=== PATIENT | female | born 1985 | race African-American/Black ===

== ENCOUNTER 2021-04-15 11:07 | Emergency (ER) | payer MEDICAID ==
[~2021-04-15] VITALS: Ht 165.1 cm; Wt 68.9 kg
--- NOTE | 2021-04-15 11:31 | NUR ---
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 THE PATIENT IS ALERT AND ORIENTED X3. DENIES PAIN. IN ROOM AIR AND DENIES SOB. RESPIRATION REGULAR AND UNLABORED. DENIES SI/HI. WILL CONTINUE TO MONITOR THE PATIENT.
--- NOTE | 2021-04-15 11:36 | NUR ---
DR PERSON AT THE BEDSIDE
--- NOTE | 2021-04-15 11:47 | NUR ---
PHLEBATOMIST AT THE BEDSIDE
[2021-04-15 11:52] LABS: BASOPHILS % (AUTO) 0.3 % (0.0-2.0); EOSINOPHILS % (AUTO) 0.5 % (0.0-6.0); HEMATOCRIT 32 % (33-45); HEMOGLOBIN 10.7 g/dL (11.5-14.8); LYMPHOCYTES # (AUTO) 1.6 K/uL (0.8-4.8); LYMPHOCYTES % (AUTO) 31.1 % (20.0-44.0); MEAN CORPUSCULAR HGB CONC 33 g/dl (31.0-36.0); MEAN CORPUSCULAR VOLUME 102 fL (82-100); MONOCYTES # (AUTO) 0.5 K/uL (0.1-1.30); MONOCYTES % (AUTO) 10.3 % (2.0-12.0); NEUTROPHILS % (AUTO) 57.8 % (43.0-81.0); PLATELET COUNT (AUTO) 332 K/uL (150-450); RED BLOOD CELL COUNT(AUTO) 3.16 MIL/uL (4.0-5.2); WHITE BLOOD COUNT (AUTO) 5.2 K/uL (4.3-11.0)
--- NOTE | 2021-04-15 11:52 | NUR ---
THE PATIENT DOES HAVE URGE TO URINATE AT THIS TIME. WILL ASK AGAIN LATER.
--- NOTE | 2021-04-15 12:06 | NUR ---
THE PATIENT IS SERVED WITH LUNCH. TOLERATES PROVIDED FOOD WELL.
[2021-04-15 12:13] LABS: ALANINE AMINOTRANSFERASE 13 U/L (12-78); ALBUMIN 2.9 g/dL (3.4-5.0); ALKALINE PHOSPHATASE 78 U/L (46-116); ASPARTATE AMINOTRANSFERASE 10 U/L (15-37); BILIRUBIN,DIRECT 0.1 mg/dL (0.0-0.2); BILIRUBIN,TOTAL 0.2 mg/dL (0.2-1.0); CALCIUM, SERUM 8.2 mg/dL (8.5-10.1); CARBON DIOXIDE 27 mmol/L (21-32); CHLORIDE 110 mmol/L (98-107); CREATININE 0.8 mg/dL (0.6-1.3); GLUCOSE 92 mg/dL (74-106); POTASSIUM 3.8 mmol/L (3.5-5.1); SODIUM SERUM 143 mmol/L (136-145); TOTAL PROTEIN, SERUM 6.6 g/dL (6.4-8.2); UREA NITROGEN, BLOOD 10 mg/dL (7-18)
[2021-04-15 12:43] LABS: ACETAMINOPHEN < 2 ug/ml (10-30); ALCOHOL, BLOOD < 3 mg/dL (0-0)
--- NOTE | 2021-04-15 13:12 | NUR ---
URINE COLLECTED AND SENT TO THE LAB
[2021-04-15 13:49] LABS: BILIRUBIN,URINE SMALL (NEGATIVE); COLOR,URINE YELLOW (YELLOW); LEUKOCYTE ESTERASE ,URINE Negative (NEGATIVE); NITRITE, URINE Negative (NEGATIVE); PROTEIN,URINE Trace mg/dl (NEGATIVE); UGLUCOSE Negative (NEGATIVE)
[2021-04-15 13:52] LABS: BACTERIA,URINE Rare /HPF (None Seen); RBC,URINE NONE SEEN /HPF (0-2); SQUAMOUS EPITHELIAL CELL,UR Few /HPF (None Seen); WBC,URINE NONE SEEN /HPF (0-3)
--- NOTE | 2021-04-15 17:51 | NUR ---
SPOKE WITH CARLYLE ([facility] CLINICIAN) WHO WILL COME TO SEE THE PATIENT.
[2021-04-15] MEDS ORDERED: OLANZAPINE 5 MG TABLET PO ONE (19:00)
[2021-04-15] MEDS ORDERED: OLANZAPINE 5 MG TABLET ONE (19:14)
--- NOTE | 2021-04-15 19:55 | NUR ---
pt would like to get admitted voluntary for feeling hurting her self. was made aware.
--- NOTE | 2021-04-16 02:59 | NUR ---
PT ACCEPTED AT [facility] UNDER THE CARE OF DR. FLETCHER. CALL [phone] FOR REPORT AND ROOM ASSSIGNMENT.
--- NOTE | 2021-04-16 02:59 | NUR ---
CALLED [facility] FOR TRANSPORTATION TO [facility]. ETA 15-20 MINUTES.
--- NOTE | 2021-04-16 03:32 | NUR ---
[facility] AT BEDSIDE FOR PT TRANSPORT TO [facility]. PT IS IN STABLE CONDITION FOR TRANSPORT. PT IS AMBULATORY ON [facility]. REPORT GIVEN TO EMT.
--- NOTE | 2021-04-16 03:32 | NUR ---
REPORT GIVEN TO NURSE LAURA AT THE [facility].
[2021-04-16 03:39] VITALS: BP 112/71
== END 2021-04-16 03:40 ==
LOC: ER 11:09
DX: R44.0 Auditory hallucinations (principal); F19.10 Other psychoactive substance abuse, uncomplicated; Z20.822 Contact with and (suspected) exposure to COVID-19; Z59.00 Homelessness unspecified
CPT/HCPCS: 36415; 80048; 80076; 80143; 80307; 80320; 81001; 84702; 84703; 85025; 87426; 99285; C9803; G0480